=== PATIENT | female | born 1940 | race Hispanic/Latino ===

== ENCOUNTER 2017-01-13 12:25 | Outpatient (CLI) | payer MEDICARE ==
--- NOTE | 2017-01-13 13:41 | Mammography Report ---
BILATERAL DIGITAL DIAGNOSTIC MAMMOGRAM WITH CAD : 01/13/17 12:25:00 CLINICAL: Breast cancer survivor status post left mastectomy and implant reconstruction. COMPARISON:12/29/15 FINDINGS: The right breast is heterogeneously dense, which may obscures small masses. No mass, architectural distortion or suspicious calcifications. The reconstructed left breast is normal and predominantly fatty with an intact implant. IMPRESSION: No mammographic evidence of malignancy. BI-RADS CATEGORY: 2 -- Benign RECOMMENDATION: Routine mammographic screening in one year. COMMENT: Patient follow-up letters are generated via our [employer] application.
== END 2017-01-13 12:26 | disposition home or self-care (01) ==
LOC: SPVWC 12:25
PROVIDERS: ATTEND Internal Medicine Hematology & Oncology
DX: R92.8 Other abnormal and inconclusive findings on diagnostic imaging of breast (principal); Z85.3 Personal history of malignant neoplasm of breast; Z90.12 Acquired absence of left breast and nipple; Z98.82 Breast implant status
CPT/HCPCS: 77066; G0204

== ENCOUNTER 2018-01-19 10:01 | Outpatient (CLI) | payer MEDICARE ==
--- NOTE | 2018-01-20 13:46 | Mammography Report ---
BILATERAL DIGITAL SCREENING MAMMOGRAM WITH CAD: 01/19/18 10:01:00 CLINICAL: Routine screening.Breast cancer survivor status post left mastectomy with implant reconstruction. COMPARISON:01/13/17 FINDINGS: The right breast is heterogeneously dense, which may obscure small masses. The reconstructed left breast is mostly fatty with an intact implant. No mass, architectural distortion or suspicious calcifications. IMPRESSION: No mammographic evidence of malignancy. BI-RADS CATEGORY: 2 -- Benign RECOMMENDATION: Routine mammographic screening in one year. COMMENT: Patient follow-up letters are generated via our [employer] application.
== END 2018-01-19 10:02 | disposition home or self-care (01) ==
LOC: SPVWC 10:01
PROVIDERS: ATTEND Internal Medicine Hematology & Oncology
DX: Z12.31 Encounter for screening mammogram for malignant neoplasm of breast (principal)
CPT/HCPCS: 77067

== ENCOUNTER 2019-01-20 13:11 | Outpatient (CLI) | payer MEDICARE ==
--- NOTE | 2019-01-22 13:18 | Mammography Report ---
DIGITAL SCREENING MAMMOGRAM WITH CAD INDICATION: Routine screening mammography. Breast cancer survivor status post left mastectomy with im plant reconstruction. TECHNIQUE: Digital bilateral 2D mammography was obtained in the craniocaudal and mediolateral obliq ue projections. This examination was interpreted with the benefit of Computer-Aided Detection analysi s. COMPARISON: 01/19/2018 FINDINGS: Breast Density: The right breast is heterogeneously dense, which may obscure small masses and the lef t breast is mostly fatty. There is no evidence of dominant mass, suspicious calcifications or architectural distortion in eith er breast. Intact left implant. A pacing device obscures the upper portion of the left breast. IMPRESSION: BI-RADS Category 2: Benign. No mammographic evidence of malignancy. Recommend routine screening ma mmography in one year. A "normal" or negative report should not discourage follow up or biopsy of a clinically significant f inding. A written summary of these findings will be mailed to the patient. The patient will be entered into a mammography reporting system which will generate a reminder letter for the patient's next appointmen t at the appropriate interval. The [employer] recommends yearly mammograms starting at age 40 and continuing as l [place] as a woman is in good health. Breast MRI is recommended for women with an approximate 20-25% or greater lifetime risk of breast cancer, including women with a strong family history of breast or ova milad cancer or who have been treated for Hodgkin's disease. Signer Name: Henok Maxwell MD Signed: 01/22/2019 1:14 PM Workstation Name: [id number]
== END 2019-01-20 13:12 | disposition home or self-care (01) ==
LOC: SPVWC 13:11
PROVIDERS: ATTEND Internal Medicine Hematology & Oncology
DX: Z12.31 Encounter for screening mammogram for malignant neoplasm of breast (principal)
CPT/HCPCS: 77067

== ENCOUNTER 2020-01-25 10:16 | Outpatient (CLI) | payer MEDICARE ==
--- NOTE | 2020-01-25 14:45 | Mammography Report ---
DIGITAL SCREENING MAMMOGRAM WITH CAD, 01/25/2020 INDICATION: Routine screening mammography. TECHNIQUE: Digital right 2D mammography was obtained in the craniocaudal and mediolateral oblique pr ojections. This examination was interpreted with the benefit of Computer-Aided Detection analysis. COMPARISON: 01/20/2019, 01/19/2018 FINDINGS: Breast Density: The breast is heterogeneously dense, which may obscure small masses. A mildly enlarged right axillary node has increased in size since the last mammogram and measures 1.2 cm in short axis dimension. No other significant abnormality is seen. Benign-appearing calcification s are unchanged. IMPRESSION: Indeterminant, mildly enlarged right axillary node. A limited right breast ultrasound is recommended for further evaluation. Follow up recommendation: Ultrasound Category 0: Incomplete. Needs additional imaging evaluation and/or prior mammograms for comparison. A "normal" or negative report should not discourage follow up or biopsy of a clinically significant f inding. A written summary of these findings will be mailed to the patient. The patient will be entered into a mammography reporting system which will generate a reminder letter for the patient's next appointmen t at the appropriate interval. The [employer] recommends yearly mammograms starting at age 40 and continuing as l [place] as a woman is in good health. Breast MRI is recommended for women with an approximate 20-25% or greater lifetime risk of breast cancer, including women with a strong family history of breast or ova milad cancer or who have been treated for Hodgkin's disease. Signer Name: Joao Cobb MD Signed: 01/25/2020 2:41 PM Workstation Name: [id number] [id number]
== END 2020-01-25 10:17 | disposition home or self-care (01) ==
LOC: SPVWC 10:16
PROVIDERS: ATTEND Internal Medicine Hematology & Oncology
DX: Z12.31 Encounter for screening mammogram for malignant neoplasm of breast (principal); N64.89 Other specified disorders of breast
CPT/HCPCS: 77067